=== PATIENT | female | born 1950 | race Caucasian/White ===

== ENCOUNTER → 2024-01-03 15:10 | Outpatient (REF) | payer OTHER, SELFPAY | LOC: HWWDC 15:10 | PROVIDERS: ATTENDING PHYSICIAN Family Medicine | DX: Z12.31 Encounter for screening mammogram for malignant neoplasm of breast (principal) | CPT/HCPCS: 77063; 77067 ==

== ENCOUNTER → 2025-03-19 09:47 | Outpatient (REF) | payer OTHER, SELFPAY | LOC: HWRAD 09:47 | PROVIDERS: ATTENDING PHYSICIAN Family Medicine | DX: Z12.31 Encounter for screening mammogram for malignant neoplasm of breast (principal); M85.80 Other specified disorders of bone density and structure, unspecified site | CPT/HCPCS: 77063; 77067 ==

== ENCOUNTER → 2025-04-10 09:06 | Outpatient (REF) | payer OTHER, SELFPAY | LOC: WDC 09:06 | PROVIDERS: ATTENDING PHYSICIAN Family Medicine | DX: N64.59 Other signs and symptoms in breast (principal) | CPT/HCPCS: 76642 ==